=== PATIENT | male | born 1955 | race Two or more races ===

== ENCOUNTER 2023-12-25 22:30 | Inpatient (IN) | payer MEDICARE, OTHER ==
[~2023-12-25] VITALS: Ht 177.8 cm; Wt 80.3 kg
[2023-12-25 22:52] LABS: BASOPHILS % (AUTO) 0.5 % (0.0-2.0); EOSINOPHILS % (AUTO) 0.1 % (0.0-6.0); HEMATOCRIT 30 % (39-51); LYMPHOCYTES # (AUTO) 1.9 K/uL (0.8-4.8); LYMPHOCYTES % (AUTO) 21.2 % (20.0-44.0); MEAN CORPUSCULAR HEMOGLOBIN 29 PG (26.0-33.0); MEAN CORPUSCULAR HGB CONC 34 g/dl (31.0-36.0); MEAN CORPUSCULAR VOLUME 85 fL (80-96); MONOCYTES # (AUTO) 1.4 K/uL (0.1-1.30); MONOCYTES % (AUTO) 15.7 % (2.0-12.0); NEUTROPHILS # (AUTO) 5.5 K/uL (1.8-8.9); NEUTROPHILS % (AUTO) 62.5 % (43.0-81.0); PLATELET COUNT (AUTO) 155 K/uL (150-450); RED BLOOD CELL COUNT(AUTO) 3.51 MIL/uL (4.5-6.0); RED CELL DISTRIBUTION WIDTH 15.6 % (11.5-15.0); WHITE BLOOD COUNT (AUTO) 8.8 K/uL (4.3-11.0)
[2023-12-25 23:03] LABS: CALCIUM, SERUM 8.9 mg/dL (8.5-10.1); CREATININE 0.9 mg/dL (0.6-1.3); POTASSIUM 3.7 mmol/L (3.5-5.1)
[2023-12-25] MEDS ORDERED: CEFEPIME 1 GM VIAL ONE (23:26)
[2023-12-25] MEDS: IV NS 0.9% 1,000 ML BAG IV ONE (23:28)
[2023-12-25] MEDS: CEFEPIME 1 GM in IV D5W 50 ML IV ONE (23:28)
[2023-12-25 23:41] LABS: ALBUMIN 2.1 g/dL (3.4-5.0); BILIRUBIN,DIRECT 0.3 mg/dL (0.0-0.2); BILIRUBIN,TOTAL 0.6 mg/dL (0.2-1.0); TOTAL PROTEIN, SERUM 6.4 g/dL (6.4-8.2)
[2023-12-26] MEDS ORDERED: MORPHINE SULFATE INJ 2 MG/ML DISP.SYRIN IV PRN (01:00)
[2023-12-26] MEDS ORDERED: ENOXAPARIN SODIUM 40 MG/0.4 ML DISP.SYRIN SQ SCH (01:00)
[2023-12-26] MEDS ORDERED: ACETAMINOPHEN 325 MG TABLET PO PRN (01:00)
[2023-12-26] MEDS ORDERED: ONDANSETRON HCL/PF 4 MG/2 ML VIAL IVP PRN (01:00)
[2023-12-26 02:05] VITALS: BP 152/73; TEMP 97.7; O2SAT 97
[2023-12-26] MEDS: IV NS 0.9% 1,000 ML IV PRN (03:07)
[2023-12-26 08:00] VITALS: BP 135/69; TEMP 98.8; O2SAT 96
[2023-12-26] MEDS ORDERED: BENZ1TAB7 PO (08:06)
[2023-12-26] MEDS ORDERED: HALO5TAB PO (08:06)
[2023-12-26] MEDS ORDERED: LISI20TA30 PO (08:06)
[2023-12-26] MEDS ORDERED: FENO145T21 PO (08:06)
[2023-12-26] MEDS ORDERED: RISP3TAB61 PO (08:06)
[2023-12-26] MEDS ORDERED: TRIA15CR4 TP (08:06)
[2023-12-26] MEDS ORDERED: SIMV-46 PO (08:06)
[2023-12-26] MEDS ORDERED: OMEP40CA21 PO (08:06)
[2023-12-26] MEDS ORDERED: DIVA-76 PO (08:06)
[2023-12-26] MEDS ORDERED: IBUP-1957 PO (08:06)
[2023-12-26] MEDS ORDERED: CLOT15CR27 TP (08:06)
[2023-12-26] MEDS ORDERED: TRIAMCINOLONE ACETONIDE 0.1% CR 15 GM TUBE TP PRN (09:00)
[2023-12-26] MEDS ORDERED: risperiDONE 1 MG TABLET PO SCH (09:00)
[2023-12-26] MEDS ORDERED: Medication Not On Formulary EA (Omeprazole 40 MG) PO SCH (09:00)
[2023-12-26] MEDS: PANTOPRAZOLE 40 MG VIAL IV SCH (09:01)
[2023-12-26] MEDS: FENOFIBRATE NANOCRYS (145 MG) 145 MG TABLET PO SCH (09:02)
[2023-12-26] MEDS: BENZTROPINE MESYLATE (1 MG) 1 MG TABLET PO SCH (09:02)
[2023-12-26] MEDS: DIVALPROEX SODIUM 250 MG TABLET.DR PO SCH (09:02)
[2023-12-26] MEDS: HALOPERIDOL 5 MG TABLET PO SCH (09:02)
[2023-12-26] MEDS: LISINOPRIL (20MG) 20 MG TABLET PO SCH (09:03)
[2023-12-26] MEDS: CLOTRIMAZOLE 1% 15 GM TUBE TP SCH (09:53)
[2023-12-26 13:02] LABS: APPEARANCE,URINE CLEAR (CLEAR); BILIRUBIN,URINE NEGATIVE (NEGATIVE); BLOOD, URINE TRACE-INTA Ery/uL (NEGATIVE); COLOR,URINE YELLOW (YELLOW); KETONES,URINE NEGATIVE (NEGATIVE); LEUKOCYTE ESTERASE ,URINE NEGATIVE (NEGATIVE); NITRITE, URINE NEGATIVE (NEGATIVE); PROTEIN,URINE NEGATIVE (NEGATIVE); UGLUCOSE 1+ mg/dL (NEGATIVE)
[2023-12-26 13:31] LABS: ADD URINE CULTURE NO; BACTERIA,URINE 1+ /HPF (None Seen); RBC,URINE 0-2 /HPF (0-2); SQUAMOUS EPITHELIAL CELL,UR 0-2 /HPF (None Seen); WBC,URINE 0-2 /HPF (0-3)
[2023-12-26 15:42] LABS: CALCIUM, SERUM 8.7 mg/dL (8.5-10.1); CREATININE 0.8 mg/dL (0.6-1.3); MAGNESIUM 1.6 mg/dL (1.8-2.4); PHOSPHORUS 2.4 mg/dL (2.5-4.9); POTASSIUM 3.5 mmol/L (3.5-5.1)
[2023-12-26 15:45] LABS: THYROID STIMULATING HORMONE 0.554 uIU/mL (0.358-3.74); URIC ACID 1.6 mg/dL (2.6-7.2)
[2023-12-26 16:00] VITALS: BP 153/80; TEMP 98.6; O2SAT 98
[2023-12-26 17:39] LABS: CHOLESTEROL 59 mg/dL (<200); HDL CHOLESTEROL 21 mg/dL (40-60); LDL 25 mg/dL (0-99); TRIGLYCERIDES 55 mg/dL (30-150)
[2023-12-26 17:46] LABS: URINE SODIUM, RANDOM 84 mmol/l (40-220)
[2023-12-26 20:13] VITALS: BP 149/77; TEMP 98.8; O2SAT 94
[2023-12-26] MEDS: ENOXAPARIN SODIUM 40 MG/0.4 ML DISP.SYRIN SQ SCH (20:41)
[2023-12-26] MEDS: SIMVASTATIN 20 MG TABLET PO SCH (23:14)
[2023-12-27 06:52] LABS: BASOPHILS % (AUTO) 0.4 % (0.0-2.0); EOSINOPHILS % (AUTO) 0.4 % (0.0-6.0); HEMATOCRIT 33 % (39-51); HEMOGLOBIN 11.2 g/dL (13.5-17.5); LYMPHOCYTES # (AUTO) 1.7 K/uL (0.8-4.8); LYMPHOCYTES % (AUTO) 25.9 % (20.0-44.0); MEAN CORPUSCULAR HEMOGLOBIN 29 PG (26.0-33.0); MEAN CORPUSCULAR HGB CONC 34 g/dl (31.0-36.0); MEAN CORPUSCULAR VOLUME 86 fL (80-96); MONOCYTES # (AUTO) 1.1 K/uL (0.1-1.30); MONOCYTES % (AUTO) 16.2 % (2.0-12.0); NEUTROPHILS # (AUTO) 3.7 K/uL (1.8-8.9); NEUTROPHILS % (AUTO) 57.1 % (43.0-81.0); PLATELET COUNT (AUTO) 167 K/uL (150-450); RED BLOOD CELL COUNT(AUTO) 3.84 MIL/uL (4.5-6.0); RED CELL DISTRIBUTION WIDTH 15.3 % (11.5-15.0); WHITE BLOOD COUNT (AUTO) 6.6 K/uL (4.3-11.0)
[2023-12-27 07:17] LABS: CALCIUM, SERUM 9.2 mg/dL (8.5-10.1); CREATININE 0.8 mg/dL (0.6-1.3); MAGNESIUM 1.7 mg/dL (1.8-2.4); PHOSPHORUS 2.5 mg/dL (2.5-4.9); POTASSIUM 3.5 mmol/L (3.5-5.1)
[2023-12-27 08:00] VITALS: BP 139/81; TEMP 97.4; O2SAT 93
[2023-12-27] MEDS: PANTOPRAZOLE 40 MG TABLET.DR PO SCH (09:17)
[2023-12-27] MEDS: MAGNESIUM OXIDE 400 MG TABLET PO ONE (10:15)
[2023-12-27 10:41] LABS: LYMPHOCYTES % (MANUAL) 26 % (16-48); MONOCYTES % (MANUAL) 12 % (0-11.0); NEUTROPHILS % (MANUAL) 62 (42-76)
[2023-12-27 10:42] LABS: ANISOCYTOSIS 1+; HYPOCHROMASIA 1+; PLATELET ESTIMATE ADEQUATE
[2023-12-27 10:43] LABS: OVALOCYTES 1+
[2023-12-27 16:00] VITALS: BP 141/68; TEMP 97.5; O2SAT 96
[2023-12-27 17:26] LABS: OSMOLALITY,URINE 315 mOS/kg (340-1090)
[2023-12-27 20:00] VITALS: BP 138/74; TEMP 98.6; O2SAT 98
[2023-12-28 06:42] LABS: CALCIUM, SERUM 9.4 mg/dL (8.5-10.1); CREATININE 0.8 mg/dL (0.6-1.3); MAGNESIUM 1.9 mg/dL (1.8-2.4); POTASSIUM 3.6 mmol/L (3.5-5.1)
[2023-12-28 07:00] VITALS: BP 138/81; TEMP 98.2; O2SAT 94
[2023-12-28 16:00] VITALS: BP 101/59; TEMP 98.2; O2SAT 95
[2023-12-28 20:00] VITALS: BP 139/71; TEMP 98.1; O2SAT 99
[2023-12-28] MEDS ORDERED: PANT40TA49 PO (20:02)
[2023-12-29 08:00] VITALS: BP 133/62; TEMP 98.1; O2SAT 98
[2023-12-29] MEDS ORDERED: DIVA500T2 PO (11:53)
[2023-12-29 16:00] VITALS: BP 115/74; TEMP 97.5; O2SAT 97
[2023-12-29] MEDS: DIVALPROEX SODIUM 500 MG TABLET.DR PO SCH (17:05)
[2023-12-29] MEDS: Z GUARD REMEDY 4 OZ OINT TP PRN (17:06)
== END 2023-12-29 17:45 | DRG 690 ==
LOC: ER 22:36 → MED 12-26 00:04
PROVIDERS: ADMIT Internal Medicine; ATTEND Internal Medicine
DX: N39.0 Urinary tract infection, site not specified (principal); G93.49 Other encephalopathy; E22.2 Syndrome of inappropriate secretion of antidiuretic hormone; R18.8 Other ascites; J44.9 Chronic obstructive pulmonary disease, unspecified; D64.9 Anemia, unspecified; E78.5 Hyperlipidemia, unspecified; F20.9 Schizophrenia, unspecified; I10 Essential (primary) hypertension; Z79.899 Other long term (current) drug therapy; E86.9 Volume depletion, unspecified; R74.8 Abnormal levels of other serum enzymes; R16.1 Splenomegaly, not elsewhere classified; T42.6X5A Adverse effect of other antiepileptic and sedative-hypnotic drugs, initial encounter; Y92.89 Other specified places as the place of occurrence of the external cause
CPT/HCPCS: 36415; 76700-TC; 80048-TC; 80061-TC; 80076-TC; 81001; 82533; 83690-TC; 83735-TC; 83935-TC; 84100-TC; 84300-TC; 84443-TC; 84484-TC; 84550-TC; 85025-TC; 87040-TC; A4223; C9113; G0378; J0692; J1650; J7030; J7060